=== PATIENT | female | born 2000 | race Caucasian/White ===

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

== ENCOUNTER 2019-07-29 13:02 | Emergency (ER) | payer OTHER ==
[2019-07-29 14:24] VITALS: BP 113/66
--- NOTE | 2019-07-29 14:50 | UC ---
Elbow Pain - HPI Summary HPI Summary: C/O left elbow bruising and pain upon awaking this morning. Denies any trauma. Did play rugby Tuesday night but didn't do anything last night. C/O numbness in the 5th finger on the left hand. Strong family history of PE/ DVT. Did notice swelling in the left thumb. [place] a pop with flexion, like it popped into place after being dislocated. - History of Current Complaint Chief Complaint: UCUpperExtremity Stated Complaint: LT ELBOW COMPLAINT Hx Obtained From: Patient Hx Last Menstrual Period: 12/30/18 ?: No Onset/Duration: Atraumatic Severity Initially: Moderate Severity Currently: Moderate Pain Intensity: 4 Location Of Pain: Is Discrete @ - inner left elbow Character: Dull, Aching Aggravating Factor(s): Movement, Pulling Alleviating Factor(s): Rest Associated Signs And Symptoms: Positive: Swelling, Bruising, Numbness/Tingling - down in the 4th and 5th fingers of the left hand - Allergies/Home Medications Allergies/Adverse Reactions: Allergies Allergy/AdvReac Type Severity Reaction Status Date / Time miconozole Allergy swelling Uncoded 07/29/19 14:12 of the vagine PMH/Surg Hx/FS Hx/Imm Hx Other Endocrine History: PCOS - Surgical History Surgical History: Yes Surgery Procedure, Year, and Place: ULNAR SHORTENING OSTEOTOMY BILATERAL ARMS, tonsillectomy, adnoids - Family History Known Family History: Positive: Cardiac Disease, Hypertension, Diabetes - Social History Occupation: Student Lives: Dormitory/Roommates Alcohol Use: Rare Substance Use Type: None Smoking Status (MU): Never Smoked Tobacco - Immunization History Vaccination Up to Date: Yes Review of Systems All Other Systems Reviewed And Are Negative: Yes Skin: Positive: Bruising Neurovascular: Positive: Decreased Sensation - left hand Musculoskeletal: Positive: Arthralgia - left elbow, felt pop, like dislocation relocating. Physical Exam Triage Information Reviewed: Yes Appearance: Well-Appearing, No Pain Distress, Well-Nourished Vital Signs: Initial Vital Signs Temp 97.9 F 07/29/19 14:14 Pulse 70 07/29/19 14:14 Resp 18 07/29/19 14:14 BP 113/66 07/29/19 14:14 Pulse Ox 97 07/29/19 14:14 Vital Signs Reviewed: Yes Eyes: Positive: Conjunctiva Clear Neck exam: Normal Respiratory Exam: Normal Cardiovascular Exam: Normal Musculoskeletal: Positive: ROM Limited @ - Left elbow flexion. Neurological: Positive: Other: - decreased pinprick sensation left ulnar nerve distribution in the hand. Skin: Positive: Other - tender bruising with swelling inner aspect left upper arm above the medial epicondyle. Elbow Pain Course/Dx - Course Course Of Treatment: Discussed with patient, with strong family history DVT/PE will need doppler to r /o DVT - Differential Dx/Diagnosis Differential Diagnosis/HQI/PQRI: Cellulitis, Contusion, Dislocation, Fracture ( Closed) Provider Diagnosis: Spontaneous ecchymoses, Ulnar neuropathy at elbow - Physician Notification/Consults Discussed Patient Care With: Dr. Collado Time Discussed With Above Provider: 15:00 Discharge ED - Sign-Out/Discharge Documenting (check all that apply): Patient Departure All imaging exams completed and their final reports reviewed: No Studies - Discharge Plan Condition: Stable Disposition: HOME-RECOMMEND TO ED Patient Education Materials: Hematoma (ED) Referrals: Non Staff,Doctor [Primary Care Provider] - Additional Instructions: Possible Blood clot. Go to the ER. They are expecting you - Billing Disposition and Condition Condition: STABLE Disposition: Home-Recommend to ED
== END 2019-07-29 15:18 | disposition home health service (06) ==
LOC: UCCORT 13:02
DX: G56.22 Lesion of ulnar nerve, left upper limb (principal); R23.3 Spontaneous ecchymoses; Z88.8 Allergy status to other drugs, medicaments and biological substances
CPT/HCPCS: 99212; G0463